=== PATIENT | male | born 1940 | race Caucasian/White ===

== ENCOUNTER 2021-05-22 01:21 | Day surgery (SDC) | payer MEDICARE, SELFPAY ==
[2021-05-14 14:40] VITALS: BMI 31.1
[2021-05-22 09:57] VITALS: BP 166/78; PULSE 94; RESP 20; TEMP 36.3; O2SAT 100; BMI 27.6
--- NOTE | 2021-05-22 10:10 | WPDANESEPPF ---
Anes - Initial Pre Proc Eval Procedure: Operation Date: 05/22/21 10:30 Proposed Procedures p Screening Colonoscopy - Darrius Scott MD Date/Time: 05/22/21 10:10 Surgeon: Darrius Scott MD Pre Op Diagnosis: neoplasm screening Patient Data Age: 81 Gender: M Height: 1.7 m Weight: 80.2 kg Last Vital Signs Temp 36.3 C L 05/22/21 09:57 Pulse 94 05/22/21 09:57 Resp 20 05/22/21 09:57 BP 166/78 H 05/22/21 09:57 Pulse Ox 100 05/22/21 09:57 Allergies Allergy/AdvReac Type Severity Reaction Status Date / Time hydrocodone Allergy Unknown Unknown Verified 05/22/21 09:56 lisinopril Allergy Unknown Unknown Verified 05/22/21 09:56 olmesartan Allergy Unknown cough Verified 05/22/21 09:56 tolmetin [Tolectin] Allergy Unknown Unknown Verified 05/22/21 09:56 Home Medications Medication Instructions Recorded Confirmed Type aspirin 81 mg tablet,delayed 81 mg PO DAILY 04/09/19 05/14/21 History release flash glucose scanning reader #1 each 09/20/19 03/30/21 Rx flash glucose sensor #13 each 09/20/19 03/30/21 Rx losartan 50 mg tablet 50 mg PO DAILY #90 tablet 04/28/20 05/14/21 Rx metformin 500 mg tablet,extended See Rx Instructions .ROUTE 09/05/20 05/14/21 Rx release 24 hr .COMPLEX #360 tablet atorvastatin 10 mg tablet See Rx Instructions .ROUTE 03/30/21 05/14/21 Rx .COMPLEX #90 tablet hydrocodone 5 mg-acetaminophen 325 1 tablet PO Q6H PRN #16 tablet 04/01/21 05/14/21 Rx mg tablet Patient hx anesthesia problems: none Family hx anesthesia problems: none Results Review: All pre-operative results and documents have been reviewed as part of the pre-operative evaluation. 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 Daughter No problems noted. Daughter No problems noted. Other Cerebrovascular accident Diabetes mellitus Family history of cardiovascular disease Family history of dementia Family history of malignant neoplasm of stomach Social History Social History Smoking packs per day: 2 Smoking cigarettes per day: 40.0 Years smoked: 55 Smoking pack-years: 110.00 Smoking status: Former smoker Tobacco type: cigarettes Smoking end date: 04/25/06 Alcohol intake: current Alcohol use details: on occasion Substance use: never Substance use type: does not use Living arrangements: alone Spiritual care concerns: No Anes - Eval Final PreProcedure Day of Procedure 05/22/21 10:10 Patient weight: overweight Heart: regular rate and rhythm Lungs: decreased breath sounds Airway: Mallampati scale class II Neurological: alert and oriented Last oral intake: >/= 8 hours ASA classification: III Emergent: no Anesthetic plan: proceed Anesthesia type and monitoring: general GIVS and standard monitoring Results Review: All pre-operative results and documents have been reviewed as part of the pre-operative evaluation. Informed Consent: The patient's anesthetic plan and its attendant risks and benefits were discussed with the patient/family/POA. Questions were solicited and answers pr
[2021-05-22] MEDS: LACTATED RINGERS 1,000 ML 150 ML IV CONT (10:14)
[2021-05-22 10:19] LABS: Glucose Point of Care 214 mg/dl (65-105)
--- NOTE | 2021-05-22 10:24 | WPDGICN ---
Assessment and Plan Assessment and plan (1) Encounter for screening colonoscopy: Code(s): Z12.11 - Encounter for screening for malignant neoplasm of colon Status: Acute Assessment and Plan: Patient presents for screening colonoscopy today. Bowel habits appear normal. Further recommendations will be given after endoscopy. GI Consult Note Consult date/time: 05/22/21 10:24 HPI: Alireza Wright is a 81 year old male Presents for screening colonoscopy. Patient reports his current weight appetite bowel movements are normal. He denies abdominal pain. He has had no bleeding. Family history is noncontributory. His last colonoscopy was in 2010. 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 Daughter No problems noted. Daughter No problems noted. Other Cerebrovascular accident Diabetes mellitus Family history of cardiovascular disease Family history of dementia Family history of malignant neoplasm of stomach Social History Social History Smoking packs per day: 2 Smoking cigarettes per day: 40.0 Years smoked: 55 Smoking pack-years: 110.00 Smoking status: Former smoker Tobacco type: cigarettes Smoking end date: 04/25/06 Alcohol intake: current Alcohol use details: on occasion Substance use: never Substance use type: does not use Living arrangements: alone Spiritual care concerns: No Meds Home Medications and Allergies Home Medications Medication Instructions Recorded Confirmed Type aspirin 81 mg tablet,delayed 81 mg PO DAILY 04/09/19 05/14/21 History release flash glucose scanning reader #1 each 09/20/19 03/30/21 Rx flash glucose sensor #13 each 09/20/19 03/30/21 Rx losartan 50 mg tablet 50 mg PO DAILY #90 tablet 04/28/20 05/14/21 Rx metformin 500 mg tablet,extended See Rx Instructions .ROUTE 09/05/20 05/14/21 Rx release 24 hr .COMPLEX #360 tablet atorvastatin 10 mg tablet See Rx Instructions .ROUTE 03/30/21 05/14/21 Rx .COMPLEX #90 tablet hydrocodone 5 mg-acetaminophen 325 1 tablet PO Q6H PRN #16 tablet 04/01/21 05/14/21 Rx mg tablet Allergies Allergy/AdvReac Type Severity Reaction Status Date / Time hydrocodone Allergy Unknown Unknown Verified 05/22/21 09:56 lisinopril Allergy Unknown Unknown Verified 05/22/21 09:56 olmesartan Allergy Unknown cough Verified 05/22/21 09:56 tolmetin [Tolectin] Allergy Unknown Unknown Verified 05/22/21 09:56 Vital Signs Vital Signs - 24 hr 05/22/21 09:57 Temperature 97.3 F L Pulse Rate 94 Respiratory Rate 20 Blood Pressure 166/78 H Pulse Oximetry 100 Exam Narrative: Physical exam reveals patient be alert. Vital signs stable. HEENT exam unremarkable. Patient is anicteric. Lungs are clear to auscultation and percussion. Heart is without murmur or extra sounds. Abdominal exam bowel sounds are present soft nontender with no organomegaly. Ext digital external rectal exam is normal. Extr
[2021-05-22 10:57] VITALS: BP 117/89; PULSE 73; RESP 18; O2SAT 96
[2021-05-22 11:07] VITALS: BP 134/67; PULSE 67; RESP 13; O2SAT 99
[2021-05-22 11:17] VITALS: BP 141/73; PULSE 66; RESP 14; O2SAT 97
== END 2021-05-22 11:32 | disposition home or self-care (01) ==
PROVIDERS: PCP Family Medicine; Visit Provider Internal Medicine Gastroenterology
PROC: 0DJD8ZZ Inspection of Lower Intestinal Tract, Via Natural or Artificial Opening Endoscopic (ICD-10-PCS; CPT 45378; principal; 2021-05-22 10:30)
DX: Z12.11 Encounter for screening for malignant neoplasm of colon (principal); K63.5 Polyp of colon; E11.40 Type 2 diabetes mellitus with diabetic neuropathy, unspecified; E11.21 Type 2 diabetes mellitus with diabetic nephropathy; I10 Essential (primary) hypertension; E11.51 Type 2 diabetes mellitus with diabetic peripheral angiopathy without gangrene; G54.6 Phantom limb syndrome with pain; Z89.612 Acquired absence of left leg above knee; Z87.891 Personal history of nicotine dependence; Z79.82 Long term (current) use of aspirin; Z79.84 Long term (current) use of oral hypoglycemic drugs; Z79.891 Long term (current) use of opiate analgesic
CPT/HCPCS: 45385; 82948; 88305; J2704; J7120

== ENCOUNTER 2021-08-20 21:02 | Emergency (ER) | payer MEDICARE, SELFPAY ==
--- NOTE | ~2021-08-20 | CT_ITS ---
EXAMINATION: CT chest abdomen pelvis w con DATE: 08/20/2021 22:47 INDICATION: Right-sided chest and abdominal pain TECHNIQUE: Transaxial computed tomographic images of the chest, abdomen, and pelvis were obtained aft er the administration of 100 cc of Omnipaque 350 intravenous contrast. The dose-length product (DLP) was 1560.37 mGy-cm. Automated exposure control and iterative reconstruction technique were employed. COMPARISON: 11/18/2010, 11/02/2012 FINDINGS: CHEST CT: There is mild atelectasis. There are acute fractures of the right sixth through 11th ribs. The sevent h and eighth ribs are mildly displaced. The seventh rib fracture is mildly comminuted. There is a seg mental fracture of the right ninth rib. There is a small right pleural effusion, possible hemothorax. No pneumothorax is identified. There is mild atelectasis. A chronic 12 mm nodule is present in the l ingula, consistent with a benign finding given the lack of interval change. The heart size is normal. There is calcified coronary artery atherosclerosis. No pathologically enlarged thoracic lymph nodes are identified. There is moderate thoracic spondylosis. ABDOMEN/PELVIS CT: The liver, spleen, pancreas, and right adrenal gland are normal. An unchanged mass of the left adrena l gland likely represents an adenoma. The left kidney is surgically absent. Cysts of the right kidney measure up to 2.8 cm. There is calcified atherosclerosis of the aorta and many of the other arteries . No pathologically enlarged abdominal or pelvic lymph nodes are identified. There is no free intrape ritoneal gas or evidence of bowel obstruction. The appendix is normal. There is moderate lumbar spond ylosis. There are small umbilical and supraumbilical hernias containing fat. IMPRESSION: 1. Right sixth through 11th rib fractures as detailed above. 2. Possible small right hemothorax. Reviewed, dictated and finalized at location F.
--- NOTE | ~2021-08-20 | CT_ITS ---
EXAMINATION: CT cervical spine wo con DATE: 08/20/2021 22:45 INDICATION: Head injury TECHNIQUE: Computed tomography (CT) of the cervical spine was performed without intravenous contrast. The dose-length product (DLP) was 368.17 mGy-cm. Automated exposure control and iterative reconstruc tion technique were employed. COMPARISON: None FINDINGS: There are 2 mm of retrolisthesis of C3 on C4 and C4 on C5. The vertebral body heights are m aintained. There is severe loss of intervertebral disc space height throughout the cervical spine. Th e odontoid is intact. The prevertebral soft tissues are normal. Small degenerative osteophytes projec t from the anterior endplates of multiple vertebral bodies. 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 IMPRESSION: 1. Severe cervical spondylosis without acute findings. Reviewed, dictated and finalized at location F.
--- NOTE | ~2021-08-20 | CT_ITS ---
EXAMINATION: CT brain wo con INDICATION: Head injury COMPARISON: 01/04/2011 TECHNIQUE: Standard unenhanced head CT. The dose-length product (DLP) was 605.33 mGy-cm. The mA was a djusted according to patient size. Iterative reconstruction technique was employed. FINDINGS: There is no acute intraparenchymal hemorrhage. No evidence of mass lesion. No evidence of a cute infarction. 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 There is moderate periven tricular and subcortical hypodensity probably related to small vessel ischemic disease. There is mode rate prominence of the sulci and ventricles related to cerebral atrophy. Intracranial calcified cereb ral atherosclerosis is noted. There are no extra-axial collections. There is no mass effect or midlin e shift. Changes in the left globe are likely from ocular lens surgery. The visualized sinuses and ma stoid air cells are well aerated. IMPRESSION: 1. No acute intracranial abnormality. 2. Age related findings. Reviewed, dictated and finalized at location F.
[2021-08-20 21:02] VITALS: BP 192/76; PULSE 84; RESP 20; TEMP 36.6; O2SAT 92
--- NOTE | 2021-08-20 21:27 | ED.FALL ---
HPI - Fall General Chief Complaint: Fall Stated Complaint: glf yesterday with rib pain today Time Seen by Provider: 08/20/21 21:05 Source: patient History of Present Illness HPI Narrative: Patient presents after a ground-level fall. Patient reports he was in the shower yesterday and had his amputated extremity resting on stool when he was bathing himself. His leg on the shower floor slipped out from under him and he fell down onto his right side. Does report striking his head denies any loss of consciousness. Initially monitored his symptoms at home however tonight having continued right-sided pain on his chest and then also felt his abdomen felt tight he was concerned so he came to the ER for further evaluation. His primary area of pain is on his right chest that sharp, constant, worse with deep inspiration, no radiation. Denies any focal numbness or weakness. Denies any prodrome prior to the fall such as chest pain, shortness of breath, lightheadedness. Related Data Home Medications Medication Instructions Recorded Confirmed aspirin 81 mg tablet,delayed 81 mg PO DAILY 04/09/19 05/14/21 release atorvastatin 08/20/21 losartan 08/20/21 metformin mg PO 08/20/21 Allergies Allergy/AdvReac Type Severity Reaction Status Date / Time lisinopril Allergy Unknown Unknown Verified 08/20/21 23:36 olmesartan Allergy Unknown cough Verified 08/20/21 23:36 tolmetin [Tolectin] Allergy Unknown Unknown Verified 08/20/21 23:36 acetaminophen [From Tylenol] Allergy Rash Verified 08/20/21 23:37 Review of Systems Review of Systems: CONSTITUTIONAL: Denies fever, chills, or sweats. EYES: Denies visual changes, redness, or discharge. ENT: Denies rhinorrhea, congestion, sore throat, or otalgia. CARDIOVASCULAR: Denies palpitations, or edema. RESPIRATORY: Denies cough or dyspnea. GASTROINTESTINAL: Denies abdominal pain, nausea, vomiting, or diarrhea. GENITOURINARY: Denies dysuria or hematuria. SKIN: Denies rash or itching. MUSCULOSKELETAL: Denies back pain, joint pain, or myalgia. NEUROLOGIC: Denies headache, numbness, dizziness, or weakness. PSYCHIATRIC: Denies anxiety or depression. 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 Daughter No problems noted. Daughter No problems noted. Other Cerebrovascular accident Diabetes mellitus Family history of cardiovascular disease Family history of dementia Family history of malignant neoplasm of stomach Social History Social History Smoking packs per day: 2 Smoking cigarettes per day: 40.0 Years smoked: 55 Smoking pack-years: 110.00 Smoking status: Former smoker Tobacco type: cigarettes Smoking end date: 04/25/06 Alcohol intake: current Alcohol use details: on occasion Substance use: never Substance use type: does not use Spiritual care concerns: No Exam Narrative: GENERAL: Well-appearing, well-nourished, and in no acute distress. HEAD: Normocephalic, atraumatic. EYES: PERRLA and EOMI.
[2021-08-20 21:30] VITALS: BP 192/76; PULSE 88; RESP 16; O2SAT 95
[2021-08-20 21:41] LABS: Basophils Absolute Auto 0.1 K/mm3 (0.0-0.1); Eosinophils Absolute Auto 0.4 K/mm3 (0-0.3); Hematocrit 36.7 % (42.0-52.0); Hemoglobin 11.8 g/dL (14.0-18.0); Immature Granulocyte Absolute 0.04 K/mm3 (0.00-0.031); Immature Granulocyte Percent A 0.4 % (0-0.5); Lymphocytes Absolute Auto 1.72 K/mm3 (0.9-3.2); Lymphocytes Percent Auto 18.8 % (18.3-44.2); Mean Corpuscular HGB Conc 32.2 g/dl (32-36); Mean Corpuscular Hemoglobin 27.4 pg (26-34); Mean Corpuscular Volume 85.3 fl (80-100); Mean Platelet Volume 9.3 fl (7.4-10.4); Monocytes Absolute Auto 0.7 K/mm3 (0.1-0.6); Monocytes Percent Auto 7.3 % (2.6-8.5); Neutrophils Absolute Auto 6.3 K/mm3 (1.3-6.7); Neutrophils Percent Auto 68.5 % (45.5-73.1); Platelet Count Result 221 k/mm3 (150-375); Red Cell Distribution Width 13.2 % (11.5-14.5); White Blood Count 9.2 K/mm3 (4.5-10.0)
[2021-08-20 21:51] LABS: Alanine Aminotransferase 13 U/L (4-50); Albumin Level 3.9 g/dL (3.5-5.1); Alkaline Phosphatase 82 U/L (38-126); Anion Gap 9 mmol/L (8-16); Aspartate Amino Transferase 21 U/L (17-59); Bilirubin,Total 0.3 mg/dL (0.2-1.3); Blood Urea Nitrogen 27 mg/dL (9-20); Calcium 8.9 mg/dL (8.4-10.2); Carbon Dioxide 26 mmol/L (22-30); Chloride 103 mmol/L (98-107); Estimated CRCL calculation 37 ml/min; Estimated Glomerular Filt Rate 45; Glucose 254 mg/dL (65-110); Potassium 4.2 mmol/L (3.4-5.0); Sodium 138 mmol/L (137-145)
[2021-08-20 21:52] LABS: INR 1.1; Prothrombin Time 14.1 Seconds (11.1-14.7)
[2021-08-20 21:53] LABS: Partial Thromboplastin Time 35.2 SECONDS (22.3-36.8)
[2021-08-20 22:32] LABS: Add Urine Microscopic? YES; Appearance Urine Clear (Clear); Bilirubin Urine Negative (Negative); Blood Urine Negative (Negative); Color Urine Yellow (Yellow); Glucose Urine UA 2+ mg/dL (Negative); Ketones Urine Negative (Negative); Leukocyte Esterase Ur Negative LEU/UL (Negative); Mucus Urine Rare /lpf; Nitrate Urine Negative (Negative); Protein Urine 2+ mg/dL (Negative); RBC Urine 0-2 /hpf (0-2); Specific Grav Ur 1.015 (1.001-1.035); Squamous Epithelial Cell Urine Rare /hpf (Few); Urobilinogen Urine Negative mg/dL (<2.0); WBC Urine 0-3 /hpf
[2021-08-20 23:01] VITALS: BP 178/77; PULSE 89; RESP 14
[2021-08-20] MEDS: oxyCODONE HCL (*CRX) 5 MG TAB IR PO (23:45)
[2021-08-20 23:55] VITALS: BP 193/87; PULSE 90; RESP 16; O2SAT 95
[2021-08-21 00:01] VITALS: BP 167/75; PULSE 85; RESP 13; O2SAT 94
== END 2021-08-21 01:00 | disposition short-term general hospital (02) ==
PROVIDERS: Emergency Provider Emergency Medicine; PCP Family Medicine
DX: S22.41XA Multiple fractures of ribs, right side, initial encounter for closed fracture (principal); I10 Essential (primary) hypertension; E11.40 Type 2 diabetes mellitus with diabetic neuropathy, unspecified; E11.21 Type 2 diabetes mellitus with diabetic nephropathy; E11.51 Type 2 diabetes mellitus with diabetic peripheral angiopathy without gangrene; Z85.528 Personal history of other malignant neoplasm of kidney; Z98.49 Cataract extraction status, unspecified eye; Z90.5 Acquired absence of kidney; Z89.512 Acquired absence of left leg below knee; Z79.84 Long term (current) use of oral hypoglycemic drugs; Z79.82 Long term (current) use of aspirin; Z87.891 Personal history of nicotine dependence; M47.812 Spondylosis without myelopathy or radiculopathy, cervical region; W18.2XXA Fall in (into) shower or empty bathtub, initial encounter
CPT/HCPCS: 36415; 70450; 71260; 72125; 74177; 80053; 81001; 85025; 85610; 85730; 99285; A9270; Q9967

== ENCOUNTER 2022-06-23 14:03 | Outpatient (CLI) | payer MEDICARE, SELFPAY ==
--- NOTE | ~2022-06-23 | MR_ITS ---
EXAMINATION: MR brain/brain stem wo/w con DATE: 06/23/2022 14:58 INDICATION: Memory loss. TECHNIQUE: Magnetic resonance imaging (MRI) of the brain and brainstem was performed without and with 18 mL MultiHance intravenous contrast. COMPARISON: Head CT 08/20/2021 FINDINGS: There is an old infarct in the left parietal lobe. There are scattered areas of nonspecific increased T2-weighted signal intensity in the cerebral white matter and jennifer. There is an old microh emorrhage in right parietal lobe. There is no acute ischemic infarct or abnormal mass lesion. The rafael tricles are normal in size. There are small bilateral mastoid effusions. There is mild mucosal thicke nayeli in the ethmoid sinuses. There are likely changes of left ocular lens replacement surgery. IMPRESSION: 1. 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 2. Mild nonspecific cerebral white matter disease and pontine disease, which likely represents chroni c small vessel ischemic disease. Reviewed, dictated and finalized at location A. FILLER IMPRESSION: 1. 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 2. Mild nonspecific cerebral white matter disease and pontine disease, which troy arnold represents chronic small vessel ischemic disease.
== END 2022-06-23 14:04 | disposition home or self-care (01) ==
PROVIDERS: PCP Family Medicine; Visit Provider Family Medicine
DX: R41.89 Other symptoms and signs involving cognitive functions and awareness (principal); R41.3 Other amnesia; R90.82 White matter disease, unspecified; Z86.73 Personal history of transient ischemic attack (TIA), and cerebral infarction without residual deficits
CPT/HCPCS: 70553; A9577